=== PATIENT | female | born 1975 | race Caucasian/White ===

== ENCOUNTER 2016-12-04 01:13 | Emergency (ER) | payer SELFPAY ==
[2016-12-04] MEDS ORDERED: Lidocaine 1% Inj (20ml) INFIL ONE (01:56)
--- NOTE | 2016-12-04 02:01 | C.PDOC ---
History Of Present Illness 41 year old female who presents to the ER with a complaint of right thumb pain after her son sat on her right hand and caused her nail to tear. Patient denies weakness or numbness of the thumb. Time Seen by Provider: 12/04/16 01:27 Chief Complaint (Nursing): Finger,Hand,&Wrist History Per: Patient History/Exam Limitations: no limitations Onset/Duration Of Symptoms: Hrs Current Symptoms Are (Timing): Still Present Quality: Aching Recent travel outside of the [place]: No Past Medical History Reviewed: Historical Data, Nursing Documentation, Vital Signs Vital Signs: Last Vital Signs Temp 99.7 F H 12/04/16 01:33 Pulse 72 12/04/16 01:33 Resp 18 12/04/16 01:33 BP 121/77 12/04/16 01:33 Pulse Ox 100 12/04/16 04:33 - Medical History PMH: No Chronic Diseases Surgical History: No Surg Hx Family History: States: Unknown Family Hx - Social History Hx Tobacco Use: No Hx Alcohol Use: Yes Hx Substance Use: No - Immunization History Hx Tetanus Toxoid Vaccination: No Hx Influenza Vaccination: No Hx Pneumococcal Vaccination: No Review Of Systems Musculoskeletal: Positive for: Hand Pain Neurological: Negative for: Weakness, Numbness Physical Exam - Physical Exam Appears: Non-toxic Skin: Normal Color, Warm, Dry Head: Atraumatic, Normacephalic Oral Mucosa: Moist Extremity: Capillary Refill (Good), Other (Medial aspect of right thumb nail shifted to the right exposing the nail bed) Pulses: Left Radial: Normal, Right Radial: Normal Neurological/Psych: Oriented x3, Normal Speech, Normal Cognition ED Course And Treatment O2 Sat by Pulse Oximetry: 100 (Room air) Pulse Ox Interpretation: Normal Medical Decision Making Medical Decision Making: Plan: Tylenol Keflex Lidocaine Percocet 415 am several attempts made to tuck corner of nailbed under skin without success; nail detached from nailbed, no active bleeding. nail left in place, nail bed irrigated and bulky dressing applied. pt to be discharged with keflex and tramdol. with hand f/u on monday. Disposition Counseled Patient/Family Regarding: Diagnosis, Need For Followup, Rx Given - Disposition Referrals: Darleen Zuniga MD [Provisional Staff] - Disposition: HOME/ ROUTINE Disposition Time: 04:28 Condition: STABLE Additional Instructions: Keep bulky dressing on finger until seen by hand doctor on Monday- call first thing Monday morning to make appointment. Take antibiotics as prescribed. Take 2 Tylenol every 4-6 hours for pain. Take one Tramadol every 6 hours for pain- makes you sleepy. Return to ER for any worsening symptoms, fever or any other concerns. Prescriptions: Acetaminophen [Tylenol 325mg tab] 650 mg PO Q6 #50 tab Cephalexin [Keflex] 500 mg PO Q6 #28 capsule Tramadol HCl [Ultram] 50 mg PO Q6 #8 tablet Instructions: Nail Avulsion (ED) Forms: [facility] ([place]ian), General Discharge Instructions - Clinical Impression Clinical Impression: Injury of nail bed of right thumb, Nail avulsion, finger - Scribe Statement The provider has reviewed the documentation as recorded by the Scribchiquita Robison All medical record entries made by the Agibe were at my direction and personally dictated by me. I have reviewed the chart and agree that the record accurately reflects my personal performance of the history, physical exam, medical decision making, and the department course for this patient. I have also personally directed, reviewed, and agree with the discharge instructions and disposition.
[2016-12-04] MEDS ORDERED: Lidocaine 1% Inj (20ml) ONE (02:05)
[2016-12-04] MEDS ORDERED: Oxycodone/Acetaminophen 5/325 mg Tab PO STA (03:57)
[2016-12-04] MEDS ORDERED: Oxycodone/Acetaminophen 5/325 mg Tab ONE (04:10)
[2016-12-04 04:47] VITALS: BP 121/72; PULSE 67; RESP 16; TEMP 98.2
[2016-12-05 06:15] VITALS: O2SAT 100
== END 2016-12-04 04:47 | disposition home or self-care (01) ==
LOC: C.ER 01:13
DX: S61.101A Unspecified open wound of right thumb with damage to nail, initial encounter (principal); X58.XXXA Exposure to other specified factors, initial encounter